=== PATIENT | female | born 1965 | race Caucasian/White ===

== ENCOUNTER 2020-12-18 18:36 | Emergency (ER) | payer OTHER ==
[2020-12-18 18:53] VITALS: TEMP 97.8; BMI 31.9
[2020-12-18] MEDS ORDERED: VALSARTAN 40 MG TABLET PO ONE (19:57)
[2020-12-18 20:26] LABS: BASO % 0.9 % (0-2.0); EOS % 2.4 % (0-4.5); HEMATOCRIT 36.9 % (32.4-45.2); HEMOGLOBIN 12.7 GM/dL (10.7-15.3); LYMPH % 31.9 % (8-40); MCH 28.5 pg (25.7-33.7); MCHC 34.4 g/dl (32.0-36.0); MEAN CELL VOLUME 82.9 fl (80-96); MEAN PLT VOLUME 6.9 fl (7.5-11.1); MONO % 7.6 % (3.8-10.2); NEUT % 57.2 % (42.8-82.8); PLATELET COUNT 250 10^3/uL (134-434); RBC 4.45 M/mm3 (3.60-5.2); RDW 13.6 % (11.6-15.6); WHITE BLOOD COUNT 6.2 K/mm3 (4.0-10.0)
[2020-12-18] MEDS ORDERED: VALSARTAN 80 MG TABLET ONE (20:36)
[2020-12-18 20:39] LABS: CHLORIDE 116 mmol/L (98-107); SODIUM 145 mmol/L (136-145)
[2020-12-18 20:43] LABS: CALCIUM 8.3 mg/dL (8.5-10.1)
[2020-12-18 20:45] LABS: ALBUMIN 1.8 g/dl (3.4-5.0); ANION GAP 8 MMOL/L (8-16); BLOOD UREA NITROGEN 18.2 mg/dL (7-18); CO2 21 mmol/L (21-32); GLUCOSE,RANDOM 81 mg/dL (74-106)
[2020-12-18 20:47] LABS: CREATININE 1.1 mg/dL (0.55-1.3); SGOT/AST 46 U/L (15-37); SGPT/ALT 26 U/L (13-61)
[2020-12-18] MEDS ORDERED: POTASSIUM CHLORIDE TABS 20 MEQ TABLET.ER (FP) PO ONE ×3 (20:48→21:01)
[2020-12-18 20:49] LABS: BILIRUBIN,TOTAL 0.2 mg/dL (0.2-1); TOT PROT 4.9 g/dl (6.4-8.2)
[2020-12-18 20:50] LABS: ALK PHOS 145 U/L (45-117)
[2020-12-18] MEDS ORDERED: amLODIPine BESYLATE 5 MG TABLET (FP) PO ONE (20:58)
[2020-12-18] MEDS ORDERED: amLODIPine BESYLATE 5 MG TABLET (FP) ONE (21:02)
[2020-12-18 21:22] VITALS: BP 178/90; PULSE 86
== END 2020-12-18 21:21 | disposition home or self-care (01) ==
LOC: JER 18:36
DX: I10 Essential (primary) hypertension (principal)
CPT/HCPCS: 36415; 71045-TC-FY; 80053; 84443; 84484; 85025; 93005; 93010; 99285-25